=== PATIENT | female | born 1980 ===

== ENCOUNTER 2016-09-02 14:43 | Emergency (ER) | payer OTHER ==
[2016-09-02 14:53] VITALS: BP 120/82; PULSE 107; RESP 20; TEMP 98.7; O2SAT 97
--- NOTE | 2016-09-02 15:48 | C.PDOC ---
History Of Present Illness 35 y/o female presents to the ED with complains of body aches, subjective fever and dry cough for the past 2 days. Pt denies nausea, vomiting, SOB, chest pain or any other complaints. No sick contacts. Pt did not receive flu vaccine this year. Chief Complaint (Nursing): Flu-like Symptoms History Per: Patient History/Exam Limitations: no limitations Onset/Duration Of Symptoms: Days Current Symptoms Are (Timing): Still Present Location Of Pain: Diffuse Myalgias Sick Contacts (Context): None Associated Symptoms: Fever, Cough. denies: Nausea, Vomiting, Diarrhea Severity: Mild Recent travel outside of the [place]: No Past Medical History Reviewed: Historical Data, Nursing Documentation, Vital Signs Vital Signs: Last Vital Signs Temp 98.7 F 09/02/16 14:52 Pulse 107 H 09/02/16 14:52 Resp 20 09/02/16 15:28 BP 120/82 09/02/16 14:52 Pulse Ox 97 09/02/16 15:48 - Medical History PMH: Hypothyroidism Family History: States: Unknown Family Hx - Social History Hx Alcohol Use: No Hx Substance Use: No - Immunization History Hx Tetanus Toxoid Vaccination: No Hx Influenza Vaccination: No Hx Pneumococcal Vaccination: No Review Of Systems Except As Marked, All Systems Reviewed And Found Negative. Constitutional: Positive for: Fever, Other (body aches) Cardiovascular: Negative for: Chest Pain Respiratory: Positive for: Cough. Negative for: Shortness of Breath Gastrointestinal: Negative for: Nausea, Vomiting, Diarrhea Physical Exam - Physical Exam Appears: Non-toxic, No Acute Distress Skin: Warm, Dry, No Rash Head: Atraumatic, Normacephalic Throat: Normal, No Erythema Neck: Normal ROM, Supple Chest: Symmetrical Cardiovascular: Rhythm Regular, No Murmur Respiratory: Normal Breath Sounds, No Rales, No Rhonchi, No Wheezing Extremity: Bilateral: Atraumatic Neurological/Psych: Oriented x3 ED Course And Treatment O2 Sat by Pulse Oximetry: 97 (on room air) Pulse Ox Interpretation: Normal Disposition - Disposition Referrals: [facility] [Outside] [facility] [Outside] Disposition: HOME/ ROUTINE Disposition Time: 15:20 Condition: GOOD Additional Instructions: Thank you for letting us take care of you today. Your provider was Dr. Wood. You were treated for a viral syndrome. The emergency medical care you received today was directed at your acute symptoms. If you were prescribed any medication, please fill it and take as directed. It may take several days for your symptoms to resolve. Return to the Emergency Department if your symptoms worsen, do not improve, or if you have any other problems. Please contact your doctor or call one of the physicians/clinics you have been referred to that are listed on the Patient Visit Information form that is included in your discharge packet. Bring any paperwork you were given at discharge with you along with any medications you are taking to your follow up visit. Our treatment cannot replace ongoing medical care by a primary care provider (PCP) outside of the emergency department. Thank you for allowing the [facility] team to be part of your care today. Follow up with your clinic in 3-4 days for re-evaluation. Prescriptions: Oseltamivir Phosphate [Tamiflu] 75 mg PO BID #10 capsule Instructions: Viral Syndrome (ED) Forms: Gen Discharge Inst Hebrew Print Language: SOUTH SUDANESE - Clinical Impression Clinical Impression: Influenza-like illness - Scribe Statement The provider has reviewed the documentation as recorded by the Merlin Moreno Provider Attestation: All medical record entries made by the Merlin were at my direction and personally dictated by me. I have reviewed the chart and agree that the record accurately reflects my personal performance of the history, physical exam, medical decision making, and the department course for this patient. I have also personally directed, reviewed, and agree with the discharge instructions and disposition.
== END 2016-09-02 15:30 | disposition home or self-care (01) ==
LOC: C.ER 14:43
DX: J11.1 Influenza due to unidentified influenza virus with other respiratory manifestations (principal)

== ENCOUNTER 2016-12-24 12:30 | Emergency (ER) | payer OTHER ==
--- NOTE | 2016-12-24 13:13 | C.PDOC ---
History Of Present Illness Patient is a 36 y/o female presents to the ED for evaluation of gradual onset of bilateral flank pain for the last 3 weeks. Patient states pain is non- radiating, constant, aching, and worse with movement, lifting, and with bending forward. 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 Patient notes being seen by PMD with similar complaints and was prescribed Naproxen, and Flexeril without any improvement. Otherwise, denies any fever, chills, n/v/d, abdominal pain, dysuria, hematuria, urinary frequency, incontinence, saddle anesthesia, or any other associated symptoms at this time. Time Seen by Provider: 12/24/16 12:47 Chief Complaint (Nursing): Back Pain History Per: Patient History/Exam Limitations: no limitations Onset/Duration Of Symptoms: Days (3 weeks), Persistent Current Symptoms Are (Timing): Still Present Quality Of Discomfort: Aching, "Pain" Previous Symptoms: Back Pain Associated Symptoms: None. denies: Incontinence, New Weakness, New Numbness Exacerbating Factor(s): Movement, Other (lifting, bending forward) Recent travel outside of the [place]: No Additional History Per: Patient Past Medical History Reviewed: Historical Data, Nursing Documentation, Vital Signs Vital Signs: Last Vital Signs Temp 98.0 F 12/24/16 14:59 Pulse 82 12/24/16 14:59 Resp 20 12/24/16 14:59 BP 125/84 12/24/16 14:59 Pulse Ox 96 12/24/16 14:59 - Medical History PMH: Hypothyroidism Family History: States: Unknown Family Hx - Social History Hx Alcohol Use: No Hx Substance Use: No - Immunization History Hx Tetanus Toxoid Vaccination: No Hx Influenza Vaccination: No Hx Pneumococcal Vaccination: No Review Of Systems Except As Marked, All Systems Reviewed And Found Negative. Constitutional: Negative for: Fever, Chills Gastrointestinal: Negative for: Nausea, Vomiting, Abdominal Pain, Diarrhea, Constipation Genitourinary: Negative for: Dysuria, Frequency, Incontinence, Hematuria, Vaginal Discharge, Vaginal Bleeding, Pelvic Pain Musculoskeletal: Positive for: Back Pain (b/l flank pain) Skin: Negative for: Rash Neurological: Negative for: Weakness, Numbness Physical Exam - Physical Exam Appears: Non-toxic, No Acute Distress Skin: Normal Color, Warm, Dry, No Rash Head: Atraumatic, Normacephalic Eye(s): bilateral: Normal Inspection, EOMI Oral Mucosa: Moist Neck: Normal ROM, Supple Chest: Symmetrical Cardiovascular: Rhythm Regular, No Murmur Respiratory: Normal Breath Sounds, No Accessory Muscle Use, No Rales, No Rhonchi , No Wheezing Gastrointestinal/Abdominal: Normal Exam, Soft, No Tenderness Back: CVA Tenderness (b/l), No Vertebral Tenderness, No Paraspinal Tenderness Extremity: Bilateral: Atraumatic, Normal ROM Neurological/Psych: Oriented x3, Normal Speech ED Course And Treatment O2 Sat by Pulse Oximetry: 100 (RA) Pulse Ox Interpretation: Normal Progress Note: Urinalysis ordered and reviewed, (+) UTI. Patient was treated with Tramadol. On reassessment, patient is resting comfortably, with improvement of back pain. Patient remains afebrile, with no bony tenderness, extremity numbness or weakness, or abdominal pain. Patient is ambulatory in the emergency department with no signs of discomfort. Disposition Counseled Patient/Family Regarding: Diagnosis, Need For Followup, Rx Given - Disposition Referrals: [facility] [Outside] Disposition: HOME/ ROUTINE Disposition Time: 14:02 Condition: STABLE Additional Instructions: LIght duty to lower back take medication as prescribed follow up with PMD in 2-3 days for re-evaluation. return to Ed if any worsening or new changes. 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 - Scribe Statement The provider has reviewed the documentation as recorded by the Merlin Marquez All medical record entries made by the Merlin were at my direction and personally dictated by me. I have reviewed the chart and agree that the record accurately reflects my personal performance of the history, physical exam, medical decision making, and the department course for this patient. I have also personally directed, reviewed, and agree with the discharge instructions and disposition.
[2016-12-24 13:48] LABS: RBC URINE 1 /hpf (0-3); URINE BACTERIA RARE (<OCC); URINE BILIRUBIN NEGATIVE (NEGATIVE); URINE BLOOD NEGATIVE (NEGATIVE); URINE COLOR Yellow (YELLOW); URINE GLUCOSE (UA) NORMAL (Normal); URINE KETONE NEGATIVE (NEGATIVE); URINE LEUKOCYTE ESTERASE TRACE Leu/uL (Negative); URINE PROTEIN NEGATIVE (NEGATIVE); URINE UROBILINOGEN NORMAL mg/dL (0.2-1.0); WBC URINE 10 /hpf (0-5)
[2016-12-24 15:02] VITALS: BP 125/84; PULSE 82; RESP 20; TEMP 98
[2016-12-24 18:28] VITALS: O2SAT 100
== END 2016-12-24 14:59 | disposition home or self-care (01) ==
LOC: C.ER 12:30
DX: N39.0 Urinary tract infection, site not specified (principal)

== ENCOUNTER 2017-09-19 10:35 | Emergency (ER) | payer OTHER ==
[2017-09-19 10:35] VITALS: BMI 41.5
--- NOTE | 2017-09-19 12:15 | C.PDOC ---
History Of Present Illness 36 year old female presents to the ER with a complaint of irregular vaginal bleeding intermittently for the past 2 weeks. Patient went to the clinic where she had an US done, she was suppose to follow up but did not and does not know the results of the US. Patient reports she has now been bleeding for the past 3 days a little heavier than usual and has had some mild cramping. Denies weakness or dizziness. Time Seen by Provider: 09/19/17 11:23 Chief Complaint (Nursing): Female Genitourinary History Per: Patient History/Exam Limitations: no limitations Onset/Duration Of Symptoms: Days Current Symptoms Are (Timing): Still Present Quality Of Discomfort: Cramping Alleviating Factors: None Recent travel outside of the [place]: No Abnormal Vaginal Bleeding: Yes Past Medical History Reviewed: Historical Data, Nursing Documentation, Vital Signs Vital Signs: Last Vital Signs Temp 98.1 F 09/19/17 13:05 Pulse 67 09/19/17 13:05 Resp 18 09/19/17 13:05 BP 119/81 09/19/17 13:05 Pulse Ox 96 09/19/17 13:05 - Medical History PMH: Hypothyroidism Family History: States: Unknown Family Hx - Social History Hx Alcohol Use: No Hx Substance Use: No - Immunization History Hx Tetanus Toxoid Vaccination: No Hx Influenza Vaccination: No Hx Pneumococcal Vaccination: No Review Of Systems Constitutional: Negative for: Weakness Gastrointestinal: Positive for: Abdominal Pain (Mild cramping) Genitourinary: Positive for: Vaginal Bleeding Neurological: Negative for: Dizziness Physical Exam - Physical Exam Appears: Non-toxic, No Acute Distress Skin: Normal Color, Warm, Dry Head: Atraumatic, Normacephalic Eye(s): bilateral: Normal Inspection, EOMI Oral Mucosa: Moist Neck: Normal ROM Chest: Symmetrical, No Tenderness Cardiovascular: Rhythm Regular Respiratory: Normal Breath Sounds, No Rales, No Rhonchi, No Wheezing Gastrointestinal/Abdominal: Bowel Sounds, Soft, No Tenderness, No Mass, No Distention, No Guarding, No Ascites Back: Normal Inspection, No CVA Tenderness Extremity: Bilateral: Atraumatic, Normal ROM Neurological/Psych: Oriented x3, Normal Speech Gait: Steady ED Course And Treatment - Laboratory Results Result Diagrams: 09/19/17 11:59 09/19/17 11:59 O2 Sat by Pulse Oximetry: 99 (Room air) Pulse Ox Interpretation: Normal - CT Scan/US Transvaginal US Other Rad Studies (CT/US): Read By Radiologist, Radiology Report Reviewed CT/US Interpretation: IMPRESSION: 2.7 cm fundal intramural uterine fibroid. 3.6 cm simple right ovarian cyst, likely physiologic. Transabdominal US Other Rad Studies (CT/US): Read By Radiologist, Radiology Report Reviewed CT/US Interpretation: IMPRESSION: 2.7 cm fundal intramural uterine fibroid. 3.6 cm simple right ovarian cyst, likely physiologic. Medical Decision Making Medical Decision Making: Impression: irregular vaginal bleeding Plan: * Blood work * Urinalysis Prior US results reviewed from 09/05, results are as follows: 2.7 cm fundal intramural uterine fibroid. 3.6 cm simple right ovarian cyst, likely physiologic. Labs reviewed, normal H/H, no UTI, normal electrolytes. Patient feels better. Discussed results with patient and provide copy of lab and imaging reports. Patient expresses understanding. Counseling was provided regarding the diagnosis and prognosis. All questions answered and there is agreement with the plan to discharge home with Rx and instructions. Patient is stable for discharge. Patient was recommended to follow up with chief of service clinic in 1-2 days. Return to ED if symptoms worsen. 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 - Scribe Statement The provider has reviewed the documentation as recorded by the Scribe Horacio Cadena All medical record entries made by the Scribe were at my direction and personally dictated by me. I have reviewed the chart and agree that the record accurately reflects my personal performance of the history, physical exam, medical decision making, and the department course for this patient. I have also personally directed, reviewed, and agree with the discharge instructions and disposition.
[2017-09-19 12:18] LABS: HCG,QUALITATIVE URINE NEGATIVE (NEGATIVE)
[2017-09-19 12:22] LABS: SQUAMOUS EPITHIAL 22 /hpf (0-5); URINE BACTERIA RARE (<OCC); URINE BILIRUBIN NEGATIVE (NEGATIVE); URINE BLOOD 3+ (NEGATIVE); URINE CLARITY Hazy (Clear); URINE COLOR Yellow (YELLOW); URINE GLUCOSE (UA) NORMAL (Normal); URINE LEUKOCYTE ESTERASE 1+ Leu/uL (Negative); URINE PROTEIN NEGATIVE (NEGATIVE); URINE UROBILINOGEN NORMAL mg/dL (0.2-1.0)
[2017-09-19 12:22] LABS: BASO % 0.6 % (0.0-2.0); EOS # 0.1 K/uL (0.0-0.7); EOS % 1.1 % (0.0-4.0); HEMOGLOBIN 14.4 g/dL (11.0-16.0); LYMPH # 2.3 K/uL (1.0-4.3); LYMPH % 32.8 % (20.0-40.0); MEAN CELL VOLUME 85.7 fL (81.0-99.0); MEAN CORPUSCULAR HEMOGLOBIN 29.5 pg (27.0-31.0); MEAN CORPUSCULAR HGB CONC 34.4 g/dL (33.0-37.0); MEAN PLATELET VOLUME 8.4 fL (7.2-11.7); MONO # 0.6 K/uL (0.0-0.8); MONO % 7.9 % (0.0-10.0); NEUT # 4.1 K/uL (1.8-7.0); NEUT % 57.6 % (50.0-75.0); NRBC % 0.1 % (0.0-2.0); RBC 4.88 Mil/uL (3.80-5.20); RED CELL DISTRIBUTION WIDTH 13.3 % (11.5-14.5); WHITE BLOOD COUNT 7.2 K/uL (4.8-10.8)
[2017-09-19 12:36] LABS: ALB/GLOB RATIO 1.1 (1.0-2.1); ALBUMIN 4.1 g/dL (3.5-5.0); ALT/SGPT 22 U/L (9-52); AST/SGOT 29 U/L (14-36); BLOOD UREA NITROGEN 9 mg/dL (7-17); CALCIUM 9.3 mg/dl (8.6-10.4); GFR AFRICAN-AMERICAN > 60; GFR NON-AFRICAN AMERICAN > 60
[2017-09-19 13:24] VITALS: BP 119/81; PULSE 67; RESP 18; TEMP 98.1
[2017-09-19 13:40] VITALS: O2SAT 99
== END 2017-09-19 13:06 | disposition home or self-care (01) ==
LOC: C.ER 10:35
DX: D25.9 Leiomyoma of uterus, unspecified (principal); N93.9 Abnormal uterine and vaginal bleeding, unspecified

== ENCOUNTER 2017-12-31 19:59 | Emergency (ER) | payer OTHER ==
[2017-12-31 19:59] VITALS: BMI 33.0
[2017-12-31 20:38] VITALS: RESP 18; O2SAT 100
--- NOTE | 2017-12-31 21:50 | C.PDOC ---
History Of Present Illness 37 year old female presents to the ER with a complaint of left trapezius pain that radiates up the neck and to the back of the head since 16:30. Patient took 2 advil with some relief. She note she occasionally does heavy lifting. Denies weakness or tingling sensation. Time Seen by Provider: 12/31/17 20:46 Chief Complaint (Nursing): Upper Extremity Problem/Injury History Per: Patient History/Exam Limitations: no limitations Onset/Duration Of Symptoms: Hrs Current Symptoms Are (Timing): Still Present Exacerbating Factor(s): Strenuous Use Of Affected Area Recent travel outside of the [place]: No Past Medical History Reviewed: Historical Data, Nursing Documentation, Vital Signs Vital Signs: Last Vital Signs Temp 98.5 F 12/31/17 22:12 Pulse 70 12/31/17 22:12 Resp 18 12/31/17 22:12 BP 117/75 12/31/17 22:12 Pulse Ox 100 01/02/18 12:01 - Medical History PMH: Hypothyroidism Family History: States: Unknown Family Hx - Social History Hx Alcohol Use: No Hx Substance Use: No - Immunization History Hx Tetanus Toxoid Vaccination: No Hx Influenza Vaccination: No Hx Pneumococcal Vaccination: No Review Of Systems Constitutional: Negative for: Fever Musculoskeletal: Positive for: Neck Pain. Negative for: Shoulder Pain, Arm Pain Skin: Negative for: Rash Neurological: Positive for: Headache. Negative for: Weakness, Numbness Physical Exam - Physical Exam Appears: Non-toxic Skin: Normal Color, Warm, Dry Head: Atraumatic, Normacephalic Eye(s): bilateral: Normal Inspection Oral Mucosa: Moist Neck: Normal ROM, No Midline Cervical Tenderness, Paracervical Tenderness (Left and left trapezius tenderness), Supple Back: No Vertebral Tenderness, No Paraspinal Tenderness Extremity: Normal ROM (x4), No Tenderness Extremity: Bilateral: Atraumatic Pulses: Left Radial: Normal, Right Radial: Normal Neurological/Psych: Oriented x3, Normal Speech, Normal Cognition, Normal Motor, Normal Sensation ED Course And Treatment O2 Sat by Pulse Oximetry: 100 (Room air) Pulse Ox Interpretation: Normal Medical Decision Making Medical Decision Making: Toradol administered. Patient reports improvement of pain, she is resting comfortably in no acute distress, will discharge home with instructions to follow up with PMD. Disposition Counseled Patient/Family Regarding: Diagnosis, Need For Followup, Rx Given - Disposition Referrals: [facility] [Outside] Disposition: HOME/ ROUTINE Disposition Time: 21:58 Condition: IMPROVED Additional Instructions: Pine ibuprofeno segn lo prescrito. Betty relajante muscular a la hora de acostarse lo hace sentir somnoliento. Compresas fras o calientes a la neymar. Dane un seguimiento con el mdico o en la clnica en unos connolly. Evite levantar objetos pesados. Take ibuprofen as prescribed. Take muscle relaxant at bedtime makes you sleepy. Cold or warm compresses to area. Follow up with doctor or in clinic in a few days. Avoid heavy lifting. 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 - Scribe Statement The provider has reviewed the documentation as recorded by the Scribe Horacio Cadena All medical record entries made by the Scribe were at my direction and personally dictated by me. I have reviewed the chart and agree that the record accurately reflects my personal performance of the history, physical exam, medical decision making, and the department course for this patient. I have also personally directed, reviewed, and agree with the discharge instructions and disposition.
--- NOTE | 2017-12-31 21:57 | C.PDOC ---
Time Seen by Provider: 12/31/17 20:46 Chief Complaint (Nursing): Upper Extremity Problem/Injury Past Medical History Vital Signs: Last Vital Signs Temp 98.4 F 12/31/17 20:34 Pulse 76 12/31/17 20:34 Resp 18 12/31/17 20:34 BP Pulse Ox 100 12/31/17 20:34 - Medical History PMH: Hypothyroidism Family History: States: Unknown Family Hx - Social History Hx Alcohol Use: No Hx Substance Use: No - Immunization History Hx Tetanus Toxoid Vaccination: No Hx Influenza Vaccination: No Hx Pneumococcal Vaccination: No ED Course And Treatment O2 Sat by Pulse Oximetry: 100 Disposition - Disposition
[2017-12-31 22:13] VITALS: BP 117/75; PULSE 70; TEMP 98.5
== END 2017-12-31 22:12 | disposition home or self-care (01) ==
LOC: C.ER 19:59
DX: S46.912A Strain of unspecified muscle, fascia and tendon at shoulder and upper arm level, left arm, initial encounter (principal); X50.0XXA Overexertion from strenuous movement or load, initial encounter; Y92.9 Unspecified place or not applicable
CPT/HCPCS: 96372; 99284; J1885

== ENCOUNTER 2018-03-16 22:14 | Emergency (ER) | payer SELFPAY ==
[2018-03-16 22:15] VITALS: BMI 33.0
[2018-03-16 22:31] VITALS: TEMP 98.8
[2018-03-16] MEDS ORDERED: Sodium Chloride 0.9% 1,000 ML IV ONE (23:05)
[2018-03-16 23:09] LABS: HCG,QUALITATIVE URINE NEGATIVE (NEGATIVE)
[2018-03-16 23:16] LABS: SQUAMOUS EPITHIAL 2 /hpf (0-5); URINE AMORPHOUS SEDIMENT OCC /ul (<OCC); URINE BILIRUBIN NEGATIVE (NEGATIVE); URINE BLOOD 3+ (NEGATIVE); URINE CALCIUM OXALATE CRYSTALS OCC /hpf (<OCC); URINE CLARITY Clear (Clear); URINE COLOR Straw (YELLOW); URINE GLUCOSE (UA) NORMAL (Normal); URINE LEUKOCYTE ESTERASE NEG Leu/uL (Negative); URINE PROTEIN NEGATIVE (NEGATIVE); URINE UROBILINOGEN NORMAL mg/dL (0.2-1.0)
[2018-03-16] MEDS ORDERED: Sodium Chloride 0.9% 1,000 ML ONE (23:16)
[2018-03-16 23:20] LABS: BASO % 0.4 % (0.0-2.0); EOS # 0.1 K/uL (0.0-0.7); EOS % 1.4 % (0.0-4.0); HEMOGLOBIN 13.5 g/dL (11.0-16.0); LYMPH # 3.3 K/uL (1.0-4.3); LYMPH % 35.2 % (20.0-40.0); MEAN CELL VOLUME 81.9 fL (81.0-99.0); MEAN CORPUSCULAR HEMOGLOBIN 28.6 pg (27.0-31.0); MEAN CORPUSCULAR HGB CONC 34.9 g/dL (33.0-37.0); MEAN PLATELET VOLUME 7.9 fL (7.2-11.7); MONO # 0.9 K/uL (0.0-0.8); MONO % 9.9 % (0.0-10.0); NEUT % 53.1 % (50.0-75.0); RBC 4.71 Mil/uL (3.80-5.20); RED CELL DISTRIBUTION WIDTH 13.6 % (11.5-14.5); WHITE BLOOD COUNT 9.3 K/uL (4.8-10.8)
[2018-03-16 23:32] LABS: ALB/GLOB RATIO 1.3 (1.0-2.1); ALBUMIN 3.7 g/dL (3.5-5.0); ALT/SGPT 22 U/L (9-52); AST/SGOT 13 U/L (14-36); BLOOD UREA NITROGEN 13 mg/dL (7-17); CALCIUM 9.2 mg/dl (8.6-10.4); GFR NON-AFRICAN AMERICAN > 60
--- NOTE | 2018-03-16 23:38 | C.PDOC ---
History Of Present Illness 37 year old female patient hx of uterine fibroids and left ovarian cyst presents to the ER with c/o irregular heavy vaginal bleeding with abdominal pain for x3 months. Patient was given hormonal pills for x1 month by OBGYN but sx has not improved. Patient denies back pain. Patient notes she is scheduled for and OBGYN appointment on 03/19. Time Seen by Provider: 03/16/18 22:37 Chief Complaint (Nursing): Female Genitourinary History Per: Patient History/Exam Limitations: no limitations Onset/Duration Of Symptoms: Days (x3 months) Current Symptoms Are (Timing): Still Present Past Medical History Reviewed: Historical Data, Nursing Documentation, Vital Signs Vital Signs: Last Vital Signs Temp 98.8 F 03/16/18 22:27 Pulse 75 03/16/18 22:27 Resp 20 03/16/18 22:27 BP 144/89 03/16/18 22:27 Pulse Ox 100 03/16/18 22:27 - Medical History PMH: Hypothyroidism Family History: States: Unknown Family Hx - Social History Hx Alcohol Use: No Hx Substance Use: No - Immunization History Hx Tetanus Toxoid Vaccination: No Hx Influenza Vaccination: No Hx Pneumococcal Vaccination: No Review Of Systems Gastrointestinal: Positive for: Abdominal Pain Genitourinary: Positive for: Vaginal Bleeding (irregular/heavy) Musculoskeletal: Negative for: Back Pain Physical Exam - Physical Exam Appears: Non-toxic, No Acute Distress Skin: Normal Color, Warm, Dry Head: Normacephalic Eye(s): bilateral: Normal Inspection, EOMI Nose: Normal Oral Mucosa: Moist Neck: Normal ROM, Supple Chest: Symmetrical, No Deformity Cardiovascular: Rhythm Regular Respiratory: Normal Breath Sounds Gastrointestinal/Abdominal: Soft, Tenderness (mild suprapubic abdminal pain), No Distention, No Guarding, No Rebound, No Other ((-) mcburney's; (-) zhang's) Back: No CVA Tenderness Neurological/Psych: Oriented x3, Normal Speech ED Course And Treatment - Laboratory Results Result Diagrams: 03/16/18 23:17 03/16/18 23:17 O2 Sat by Pulse Oximetry: 100 (RA) Pulse Ox Interpretation: Normal Progress Note: Impression: irregular heavy bleeding. Plans: -- chem labs. -- blood work. -- IV fluids. -- Toradol. -- HCG. -- UA. Reassess: Patient is resting comfortably, denies any chest pain, shortness of breath, or lightheadedness. Patient was not orthostatic in ED. Patient was instructed to follow up with her [facility] in 1-2 days, and to return to ED for worsening symptoms. Disposition Counseled Patient/Family Regarding: Studies Performed, Diagnosis, Need For Followup, Rx Given - Disposition Referrals: Antonella Teran MD [Medical Doctor] - Disposition: HOME/ ROUTINE Disposition Time: 23:35 Condition: STABLE Additional Instructions: FOLLOW UP WITH YOUR SUPERVISOR [employer] ON MARCH 19 SCHEDULED USE PAIN MEDICATION NEEDED DRINK PLENTY OF FLUIDS RETURN TO EMERGENCY ROOM IF SYMPTOMS WORSEN SEGUIRSE CON RAYMOND GINECLOGO EL SEGN HORARIO UTILICE MEDICAMENTOS PARA EL DOLOR SEGN LO NECESARIO BEBER MUCHO LQUIDO VUELVA A LA CARLO DE EMERGENCIA SI LOS SNTOMAS SE CHAND PROBLEMAS Prescriptions: Naproxen 375 mg PO BID PRN #20 tablet PRN Reason: pain Instructions: Uterine Fibroids (DC), Heavy Periods (DC) Forms: [employer] (Portuguese) Print Language: NEPALI - Clinical Impression Clinical Impression: Uterine fibroid, Menorrhagia, Dysmenorrhea - Scribe Statement The provider has reviewed the documentation as recorded by the Scribe Leggett Do Provider Attestation: All medical record entries made by the Scribe were at my direction and personally dictated by me. I have reviewed the chart and agree that the record accurately reflects my personal performance of the history, physical exam, medical decision making, and the department course for this patient. I have also personally directed, reviewed, and agree with the discharge instructions and disposition.
[2018-03-16 23:55] VITALS: BP 130/80; PULSE 80; RESP 14
[2018-03-17 03:15] VITALS: O2SAT 100
== END 2018-03-16 23:54 | disposition home or self-care (01) ==
LOC: C.ER 22:14
DX: D25.9 Leiomyoma of uterus, unspecified (principal); N94.6 Dysmenorrhea, unspecified; N92.0 Excessive and frequent menstruation with regular cycle; E03.9 Hypothyroidism, unspecified
CPT/HCPCS: 80053; 81001; 84703; 85025; 96374; 99284; J1885; J7030

== ENCOUNTER 2018-06-02 10:54 | Emergency (ER) | payer OTHER ==
[2018-06-02 10:55] VITALS: BMI 33.0
[2018-06-02 11:14] VITALS: RESP 16; TEMP 98.3; O2SAT 98
--- NOTE | 2018-06-02 11:54 | C.PDOC ---
History Of Present Illness 37 year old female presents to the ED complaining of headache, left ear pain, sore throat, and body aches since last night. Denies any sick contacts or recent travels. Denies any fever, nausea, vomiting, diarrhea, or cough. Time Seen by Provider: 06/02/18 11:12 Chief Complaint (Nursing): ENT Problem History Per: Patient History/Exam Limitations: no limitations Onset/Duration Of Symptoms: Hrs Location Of Pain: Throat Sick Contacts (Context): None Associated Symptoms: Sore Throat, Cough. denies: Fever, Chills, Nausea, Vomiting, Diarrhea Ear Symptoms: Left: Ear Pain Recent travel outside of the [place]: No Past Medical History Reviewed: Historical Data, Nursing Documentation, Vital Signs Vital Signs: Last Vital Signs Temp 98.3 F 06/02/18 11:08 Pulse 87 06/02/18 11:08 Resp 16 06/02/18 11:08 BP 122/77 06/02/18 11:08 Pulse Ox 98 06/02/18 11:08 - Medical History PMH: Diabetes, Hypothyroidism Surgical History: No Surg Hx Family History: States: No Known Family Hx - Social History Hx Alcohol Use: No Hx Substance Use: No - Immunization History Hx Tetanus Toxoid Vaccination: No Hx Influenza Vaccination: No Hx Pneumococcal Vaccination: No Review Of Systems Constitutional: Positive for: Other (bodyaches ). Negative for: Fever, Chills ENT: Positive for: Ear Pain (left), Throat Pain Respiratory: Negative for: Cough Gastrointestinal: Negative for: Nausea, Vomiting, Diarrhea Neurological: Positive for: Headache Physical Exam - Physical Exam Appears: Non-toxic, No Acute Distress Skin: Warm, Dry, No Rash Head: Normacephalic Eye(s): bilateral: Normal Inspection Ear(s): Bilateral: Normal Nose: Normal Oral Mucosa: Moist Tongue: Normal Appearing Lips: Normal Appearing Teeth: Normal Dentition Gingiva: Normal Appearing Throat: Normal, No Erythema, No Exudate Neck: Supple Chest: Symmetrical Cardiovascular: Rhythm Regular Respiratory: Normal Breath Sounds, No Rales, No Rhonchi, No Wheezing Neurological/Psych: Oriented x3, Normal Speech Gait: Steady ED Course And Treatment O2 Sat by Pulse Oximetry: 98 (RA) Pulse Ox Interpretation: Normal Medical Decision Making Medical Decision Making: Plan - Motrin 800mg PO - Influenza A B Stat Flu exam is negative. On reevaluation, patient appears non-toxic and in no distress. Patient advised to rest, drink fluids and take Motrin/Tylenol for supportive treatment. Patient stable for discharge and given follow up instructi ons. Disposition - Disposition [facility]] Disposition: HOME/ ROUTINE Disposition Time: 12:15 Condition: STABLE Prescriptions: RX: Ibuprofen [Motrin Tab] 600 mg PO TID PRN #20 tab PRN Reason: Pain, Moderate (4-7) Instructions: Viral Syndrome (DC) Forms: SDI (Yi) Print Language: URDU - Clinical Impression Clinical Impression: Influenza-like illness - Scribe Statement The provider has reviewed the documentation as recorded by the Scribe Nilda Ramos All medical record entries made by the Scribe were at my direction and personally dictated by me. I have reviewed the chart and agree that the record accurately reflects my personal performance of the history, physical exam, medical decision making, and the department course for this patient. I have also personally directed, reviewed, and agree with the discharge instructions and disposition.
[2018-06-02 12:31] VITALS: BP 132/85; PULSE 84
== END 2018-06-02 12:30 | disposition home or self-care (01) ==
LOC: C.ER 10:54
DX: J11.1 Influenza due to unidentified influenza virus with other respiratory manifestations (principal)